=== PATIENT | female | born 1985 | race Hispanic/Latino ===

== ENCOUNTER 2018-02-27 02:14 | Emergency (ER) | payer OTHER ==
[~2018-02-27] VITALS: Ht 162.6 cm; Wt 85.3 kg
--- OUTSIDE RECORDS SUMMARY | 2018-02-27 02:17 | XMS REPORT | Clinical Summary ---
Author Author [place] [facility] Organization [place] [facility] Address Unknown Phone Unavailable Care Team Providers Care Strike Planning Applications Name Role Phone Rey Rizvi MD PCP Allergies No Known Allergies Current Medications Prescription Sig. Disp. Refills Start End Date Status Date ARMOUR THYROID 90 mg TAKE 1 TABLET ON AN EMPTY 1 06/17/19 Active tablet STOMACH DAILY SUN-SUN AND 17 2 TABLETS ON SUNDAY SOOLANTRA 1 % cream APPLY ON THE SKIN AT 2 09/01/19 Active BEDTIME FOR ROSACEA 17 doxycycline (ORACEA) 40 TAKE 1 CAPSULE EVERY DAY 5 08/31/19 Active mg capsule FOR ROSACEA 17 VERDESO 0.05 % foam APPLY TO FACIAL REDNESS 2 09/01/19 Active OR ITCHING TWICE DAILY 17 drospirenone-e.estradiol- Take 1 tablet by mouth 90 tablet 3 09/21/19 Active lm.FA (BEYAZ) daily. 17 3-0.02-0.451 mg (24) (4) tablet predniSONE (DELTASONE) 20 Take 2 tablets (40 mg 30 tablet 0 05/09/20 05/11/20 mg tablet total) by mouth daily for 17 17 2 days. epINEPHrine (EPIPEN) 0.3 Inject 0.3 mL (0.3 mg 2 Syringe 1 05/09/20 05/10/20 mg/0.3 mL auto-injector total) into the shoulder, 17 17 thigh, or buttocks as needed (allergic reaction) for up to 1 day. Active Problems No known active problems Encounters Date Type Specialty Care Team Description 02/14/2018 Telephone Obstetrics and Gynecology Olivia Elmore RN 02/13/2018 Telephone Obstetrics and Gynecology Zulay Pepe MD 09/19/2017 Orders Only Obstetrics and Gynecology Alyx Courtney MA Amenorrhea (Primary Dx) 05/21/2017 Lab Lab Disha Bae MD Other abnormal glucose Juan José Bae MD (Primary Dx); Chronic lymphocytic thyroiditis; Persistent disorder of initiating or maintaining sleep; Mixed hyperlipidemia; Apnea 05/09/2017 Emergency Emergency Medicine Clark Camacho DO Allergic reaction to food, initial encounter (Primary Dx) 03/08/2017 [employer] Wellness Naomie Wood, [employer]ITIONER II Visit for laboratory test Screening (Primary Dx) after 02/26/2017 Family History Medical History Relation Name Comments Hypertension Mother Relation Name Status Comments Mother Alive Social History Tobacco Use Types Packs/Day Years Used Date Never Smoker Smokeless Tobacco: Never Used Alcohol Use Drinks/Week oz/Week Comments Yes RARELY Sex Assigned at Date Recorded Not on file Last Filed Vital Signs Vital Sign Reading Time Taken Blood Pressure 118/77 05/09/2017 3:38 AM [employer] Pulse 89 05/09/2017 3:38 AM [employer] Temperature 37 C (98.6 F) 05/09/2017 1:32 AM [employer] Respiratory Rate 15 05/09/2017 3:38 AM [employer] Oxygen Saturation 99% 05/09/2017 3:38 AM [employer] Inhaled Oxygen - - Concentration Weight 79.7 kg (175 lb 9.6 oz) 03/08/2017 2:52 PM CDT Height 157.5 cm (5' 2") 05/09/2017 1:32 AM [employer] Body Mass Index 31.11 03/08/2017 2:52 PM CDT Plan of Treatment Date Type Specialty Care Team Description 03/04/2018 Office Visit Obstetrics and Gynecology Zulay Pepe MD [facility] [address] [place] [id number] Health Maintenance Due Date Last Done Comments CERVICAL CANCER SCREENING 2005 INFLUENZA VACCINE 12/12/2017 Procedures Procedure Name Priority Date/Time Associated Diagnosis Comments ESTIMATED GFR Routine 02/14/2018 Results for this 12:40 PM CDT procedure are in the results section. VITAMIN D 25 HYDROXY Routine 02/14/2018 Chronic lymphocytic Results for this LEVEL 12:40 PM CDT thyroiditis procedure are in the Encounter for long-term results section. (current) use of high-risk medication Vitamin D deficiency Vitamin B 12 deficiency COMPREHENSIVE METABOLIC Routine 02/14/2018 Chronic lymphocytic Results for this PANEL 12:40 PM CDT thyroiditis procedure are in the Encounter for long-term results section. (current) use of high-risk medication Vitamin D deficiency Vitamin B 12 deficiency THYROID STIMULATING Routine 02/14/2018 Chronic lymphocytic Results for this HORMONE 12:40 PM CDT thyroiditis procedure are in the Encounter for long-term results section. (current) use of high-risk medication Vitamin D deficiency Vitamin B 12 deficiency VITAMIN B12 LEVEL Routine 02/14/2018 Chronic lymphocytic Results for this 12:40 PM CDT thyroiditis procedure are in the Encounter for long-term results section. (current) use of high-risk medication Vitamin D deficiency Vitamin B 12 deficiency THYROID PEROXIDASE Routine 02/14/2018 Chronic lymphocytic Results for this ANTIBODY 12:40 PM CDT thyroiditis procedure are in the Encounter for long-term results section. (current) use of high-risk medication Vitamin D deficiency Vitamin B 12 deficiency HC COMPLETE BLD COUNT Routine 02/14/2018 Chronic lymphocytic Results for this W/AUTO DIFF 12:40 PM CDT thyroiditis procedure are in the Encounter for long-term results section. (current) use of high-risk medication Vitamin D deficiency Vitamin B 12 deficiency THYROID STIMULATING STAT 09/24/2017 Irregular menstrual cycle Results for this HORMONE 12:18 PM CDT Other retirement (current) procedure are in the drug therapy results section. Autoimmune thyroiditis ZZESTIMATED GFR Routine 09/21/2017 Results for this 12:02 PM CDT procedure are in the results section. VITAMIN D 25 HYDROXY Routine 09/21/2017 Chronic lymphocytic Results for this LEVEL 12:02 PM CDT thyroiditis procedure are in the Fatigue, unspecified type results section. Rash Vitamin D deficiency Encounter for long-term (current) use of medications THYROID PEROXIDASE Routine 09/21/2017 Chronic lymphocytic Results for this ANTIBODY 12:02 PM CDT thyroiditis procedure are in the Fatigue, unspecified type results section. Rash Vitamin D deficiency Encounter for long-term (current) use of medications COMPREHENSIVE METABOLIC Routine 09/21/2017 Chronic lymphocytic Results for this PANEL 12:02 PM CDT thyroiditis procedure are in the Fatigue, unspecified type results section. Rash Vitamin D deficiency Encounter for long-term (current) use of medications HC COMPLETE BLD COUNT Routine 09/21/2017 Chronic lymphocytic Results for this W/AUTO DIFF 12:02 PM CDT thyroiditis procedure are in the Fatigue, unspecified type results section. Rash Vitamin D deficiency Encounter for long-term (current) use of medications HCG QUANTITATIVE, SERUM Routine 09/21/2017 Amenorrhea Results for this 12:02 PM CDT procedure are in the results section. ZZESTIMATED GFR Routine 07/25/2017 Results for this 9:05 AM CDT procedure are in the results section. THYROID STIMULATING Routine 07/25/2017 Chronic lymphocytic Results for this HORMONE 9:05 AM CDT thyroiditis procedure are in the Need for prophylactic results section. chemotherapy LIPID PANEL Routine 07/25/2017 Chronic lymphocytic Results for this 9:05 AM CDT thyroiditis procedure are in the Need for prophylactic results section. chemotherapy COMPREHENSIVE METABOLIC Routine 07/25/2017 Chronic lymphocytic Results for this PANEL 9:05 AM CDT thyroiditis procedure are in the Need for prophylactic results section. chemotherapy HC COMPLETE BLD COUNT Routine 07/25/2017 Chronic lymphocytic Results for this W/AUTO DIFF 9:05 AM CDT thyroiditis procedure are in the Need for prophylactic results section. chemotherapy ZZESTIMATED GFR Routine 05/21/2017 Results for this 7:00 AM [employer] procedure are in the results section. LIPID PANEL Routine 05/21/2017 Other abnormal glucose Results for this 7:00 AM [employer] Chronic lymphocytic procedure are in the thyroiditis results section. Persistent disorder of initiating or maintaining sleep Mixed hyperlipidemia Apnea COMPREHENSIVE METABOLIC Routine 05/21/2017 Other abnormal glucose Results for this PANEL 7:00 AM [employer] Chronic lymphocytic procedure are in the thyroiditis results section. Persistent disorder of initiating or maintaining sleep Mixed hyperlipidemia Apnea THYROID STIMULATING Routine 05/21/2017 Other abnormal glucose Results for this HORMONE 7:00 AM [employer] Chronic lymphocytic procedure are in the thyroiditis results section. Persistent disorder of initiating or maintaining sleep Mixed hyperlipidemia Apnea HEMOGLOBIN A1C Routine 05/21/2017 Other abnormal glucose Results for this 7:00 AM [employer] Chronic lymphocytic procedure are in the thyroiditis results section. Persistent disorder of initiating or maintaining sleep Mixed hyperlipidemia Apnea HC COMPLETE BLD COUNT Routine 05/21/2017 Other abnormal glucose Results for this W/AUTO DIFF 7:00 AM [employer] Chronic lymphocytic procedure are in the thyroiditis results section. Persistent disorder of initiating or maintaining sleep Mixed hyperlipidemia Apnea POC COTININE Routine 03/08/2017 Visit for laboratory test Results for this 2:55 PM CDT procedure are in the results section. after 02/26/2017 Results * Estimated GFR (02/14/2018 12:40 PM) Estimated GFR >=90 mL/min/1.73 m2 [facility] DEPARTMENT OF Comment: PATHOLOGY AND [employer] GENOMIC MEDICINE rpretation G1 >=90 Normal or high G2 60-89Mildly decreased [id number] Mildly to moderately decreased [id number] Moderately to severely decreased G4 15-29Severely decreased G5 <15Kidney failure The eGFR was calculated using the Chronic Kidney Disease Epidemiology Collaboration (CKD-EPI) equation. Interpretation is based on recommendations of the National Kidney Foundation-Kidney Disease Outcomes Quality Initiative (NKF-KDOQI) published in 2014. Specimen Plasma specimen Performing Organization Address City/State/Zipcode Phone Number [facility] [place] [place] [address] [place] [place] [address] PATHOLOGY AND GENOMIC MEDICINE * Thyroperoxidase antibody (02/14/2018 12:40 PM) Only the most recent of 2 results within the time period is included. Thyroperoxidase Ab 2.8 0.0 - 9.0 IU/mL [facility] DEPARTMENT OF PATHOLOGY AND [employer] MEDIC[facility] Specimen Serum Performing Organization Address City/State/Zipcode Phone Number [facility] DEPARTMENT OF [address] [place] [address] PATHOLOGY AND [employer] MEDICINE * Vitamin D 25 hydroxy level (02/14/2018 12:40 PM) Only the most recent of 2 results within the time period is included. Vitamin D, 25-hydroxy 19.9 (L) 30.0 - 150.0 ng/mL [facility] DEPARTMENT OF Comment: PATHOLOGY AND This assay reports the sum of [facility] MEDICINE 25-hydroxy vitamin D3 and 25-hydroxy vitamin D2. Reference range: 0-17 years: Deficiency: less than 20ng/mL Optimum level: greater than or equal to 20 ng/mL. 18 years and older: Deficiency: less than 20ng/mL Insufficiency: 20-29 ng/mL Optimum Level: 30-80 ng/mL The assay reportable range is 3.4155.9 ng/mL. Levels higher than 150 ng/mL may be associated with toxicity. If toxicity is clinically suspected and the reported result is >155.9 ng/mL,contact lab for alternative methods to obtain a definitivelevel. If separate quantitation of 25-hydroxy vitamin D3 and 25-hydroxy vitamin D2 is needed, please contact lab for alternative methods. Specimen Blood Performing Organization Address City/State/Zipcode Phone Number [facility] DEPARTMENT OF [address] [place] [address] PATHOLOGY AND GENOMIC MEDICINE * CBC with platelet and differential (02/14/2018 12:40 PM) Only the most recent of 4 results within the time period is included. WBC 8.68 4.50 - 11.00 k/uL [facility] DEPARTMENT OF PATHOLOGY AND GENOMIC MEDICINE RBC 4.78 4.20 - 5.50 m/uL [facility] DEPARTMENT OF PATHOLOGY AND GENOMIC MEDICINE HGB 13.5 12.0 - 16.0 g/dL [facility] DEPARTMENT OF PATHOLOGY AND GENOMIC MEDICINE HCT 40.4 37.0 - 47.0 % [facility] DEPARTMENT OF PATHOLOGY AND GENOMIC MEDICINE MCV 84.5 82.0 - 100.0 fL [facility] DEPARTMENT OF PATHOLOGY AND GENOMIC MEDICINE MCH 28.2 27.0 - 34.0 pg [facility] DEPARTMENT OF PATHOLOGY AND GENOMIC MEDICINE MCHC 33.4 31.0 - 37.0 g/dL [facility] DEPARTMENT OF PATHOLOGY AND GENOMIC MEDICINE RDW - SD 43.1 37.0 - 55.0 fL [facility] DEPARTMENT OF PATHOLOGY AND GENOMIC MEDICINE MPV 10.0 8.8 - 13.2 fL [facility] DEPARTMENT OF PATHOLOGY AND GENOMIC MEDICINE Platelet count 248 150 - 400 k/uL [facility] DEPARTMENT OF PATHOLOGY AND GENOMIC MEDICINE Nucleated RBC 0.00 /100 WBC [facility] DEPARTMENT OF PATHOLOGY AND GENOMIC MEDICINE Neutrophils 68.5 39.0 - 69.0 % [facility] DEPARTMENT OF PATHOLOGY AND GENOMIC MEDICINE Lymphocytes 23.4 (L) 25.0 - 45.0 % [facility] DEPARTMENT OF PATHOLOGY AND GENOMIC MEDICINE Monocytes 5.1 0.0 - 10.0 % [facility] DEPARTMENT OF PATHOLOGY AND GENOMIC MEDICINE Eosinophils 2.5 0.0 - 5.0 % [facility] DEPARTMENT OF PATHOLOGY AND GENOMIC MEDICINE Basophils 0.2 0.0 - 1.0 % [facility] DEPARTMENT OF PATHOLOGY AND GENOMIC MEDICINE Specimen Blood Performing Organization Address City/State/Zipcode Phone Number [facility] [place] [place] [address] [place] [address] PATHOLOGY AND GENOMIC MEDICINE * Thyroid stimulating hormone (02/14/2018 12:40 PM) Only the most recent of 4 results within the time period is included. TSH 3.42 0.27 - 4.20 uIU/mL [facility] OF PATHOLOGY AND GENOMIC [facility] Specimen Plasma specimen Performing Organization Address City/[facility]/Zipcode Phone Number [facility] [address] [place] [address] PATHOLOGY AND [facility] * Vitamin B12 level (02/14/2018 12:40 PM) Vitamin B12 837 211 - 946 pg/mL [facility] DEPARTMENT OF Comment: PATHOLOGY AND Significant overlap exists GENOMIC MEDICINE between normal and deficiency states. However, most patients with deficiencies will have Serum B12 <200 pg/mL. Specimen Serum Performing Organization Address City/[facility] Phone Number [place] [address] [place] [address] PATHOLOGY [facility] * Comprehensive metabolic panel (02/14/2018 12:40 PM) Only the most recent of 4 results within the time period is included. Sodium 140 135 - 148 mEq/L [facility] DEPARTMENT OF PATHOLOGY AND GENOMIC MEDICINE Potassium 3.9 3.5 - 5.0 mEq/L [facility] DEPARTMENT OF PATHOLOGY AND GENOMIC MEDICINE Chloride 105 98 - 112 mEq/L [facility] DEPARTMENT OF PATHOLOGY AND GENOMIC MEDICINE CO2 26 24 - 31 mEq/L [facility] DEPARTMENT OF PATHOLOGY AND GENOMIC MEDICINE Anion gap 9@ANIO 7 - 15 mEq/L [facility] DEPARTMENT OF PATHOLOGY AND GENOMIC MEDICINE BUN 8 6 - 20 mg/dL [facility] DEPARTMENT OF PATHOLOGY AND GENOMIC MEDICINE Creatinine 0.70 0.50 - 0.90 mg/dL [facility] DEPARTMENT OF PATHOLOGY AND GENOMIC MEDICINE Glucose 76 65 - 99 mg/dL [facility] DEPARTMENT OF PATHOLOGY AND GENOMIC MEDICINE Calcium 9.7 8.3 - 10.2 mg/dL [facility] DEPARTMENT OF PATHOLOGY AND GENOMIC MEDICINE Protein 7.6 6.3 - 8.3 g/dL [facility] DEPARTMENT OF Comment: PATHOLOGY AND GENOMIC MEDICINE 4.6-7.0 g/dL 1 week 4.4-7.6 g/dL 7 months-1year 5.1-7.3 g/dL 1-2 years5.6-7 .5 g/dL >3 years6.0-8 .0 g/dL 18-150 6.3-8.3 g/dL Albumin 4.3 3.5 - 5.0 g/dL [facility] DEPARTMENT OF PATHOLOGY AND GENOMIC MEDICINE A/G ratio 1.3 0.7 - 3.8 [facility] DEPARTMENT OF PATHOLOGY AND GENOMIC MEDICINE Alkaline phosphatase 72 35 - 104 U/L [facility] DEPARTMENT OF PATHOLOGY AND GENOMIC MEDICINE AST 43 (H) 10 - 35 U/L [facility] OF PATHOLOGY AND GENOMIC MEDICINE ALT 56 (H) 5 - 50 U/L [facility] DEPARTMENT OF PATHOLOGY AND GENOMIC MEDICINE Total bilirubin 0.2 0.0 - 1.2 mg/dL [facility] DEPARTMENT OF PATHOLOGY AND GENOMIC MEDICINE Specimen Plasma specimen Performing Organization Address [facility] Phone Number [address] [place] [address] PATHOLOGY AND [employer] MEDICINE * Estimated GFR (09/21/2017 12:02 PM) Only the most recent of 3 results within the time period is included. GFR Non Af Amer >90 mL/min/1.73 m2 [facility] DEPARTMENT OF PATHOLOGY AND GENOMIC MEDICINE GFR Af Amer >90 mL/min/1.73 m2 [facility] DEPARTMENT OF Comment: PATHOLOGY AND Chronic kidney disease: <60 GENOMIC MEDICINE mL/min/1.73m2 Kidney failure: <15 mL/min/1.73m2 The estimated GFR is calculated from the IDMS-traceable Modification of Diet in Renal Disease Equation. The accuracy of the calculation is poor when the creatinine is normal. Calculated values >90 mL/min/1.73m2 are not reported. This equation has not been validated in children (<18 years), women, the elderly (>70 years), or ethnic groups other than Caucasians and Americans. Specimen Plasma specimen Performing Organization Address [facility] Phone Number [address] [place] [address] PATHOLOGY AND [employer] [facility] * hCG quantitative, serum (09/21/2017 12:02 PM) hCG quantitative, serum <0 0 - 5 mIU/mL [facility] DEPARTMENT OF Comment: PATHOLOGY AND Reference range for HCG Quant GENOMIC MEDICINE applies to males and non- females. Post Menopausal 0.0 - 8.1 mIU/mL Specimen Plasma specimen Performing Organization Address [facility] Phone Number [address] [place] [address] PATHOLOGY AND [employer] MEDICINE * Lipid panel (07/25/2017 9:05 AM) Only the most recent of 2 results within the time period is included. Cholesterol 175 <200 mg/dL [facility] DEPARTMENT OF PATHOLOGY AND GENOMIC MEDICINE Triglycerides 48 <150 mg/dL [facility] DEPARTMENT OF PATHOLOGY AND GENOMIC MEDICINE HDL cholesterol 84 >40 mg/dL [facility] DEPARTMENT OF PATHOLOGY AND GENOMIC MEDICINE LDL cholesterol 96Comment: Result obtained by <100 mg/dL [facility] DEPARTMENT OF direct LDL measurement PATHOLOGY AND [facility] MEDICINE Lipid panel SeeBelow [facility] DEPARTMENT OF interpretation Comment: PATHOLOGY AND Total Cholesterol GENOMIC MEDICINE (mg/dL) <200 Desirable 200-239Borderline -high >=240High Triglycerides (mg/dL) <150 Normal 150-199Borderline -high 200-499High >=500Very high HDL Cholesterol (mg/dL) <40Low (male) <40Low (female) LDL Cholesterol (mg/dL) <100 Optimal 100-129Near or above optimal 130-159Borderline -high 160-189High >=190Very high Risk Catergories that modify LDL goals. Risk Catergories LDL goal (mg/dL) CHD and CHD risk equivalent<100 (10-year risk >20%) Multiple (2+) risk factors <130 (10-year risk=<20%) 0-1 risk factors <160 (<10-year risk) Defining levels of lipids in metabolic syndrome Triglycerides >=150 mg/dL HDL Cholesterol Men <40 mg/dL Women <40 mg/dL Non-HDL cholesterol is a second target for therapy in persons with high triglycerides (>=200 mg/dL) Specimen Plasma specimen Performing Organization Address City/State/Zipcode Phone Number [facility] [place] [address] [address] [place] [address] PATHOLOGY AND GENOMIC MEDICINE * Hemoglobin A1c (05/21/2017 7:00 AM) Hemoglobin A1C 5.4 4.0 - 6.0 % [facility] DEPARTMENT OF Comment: PATHOLOGY AND GENOMIC MEDICINE Less than 6% - Goal of therapy for Type II Diabetes Less than 7%-Goal of therapy for Type I Diabetes Less than 8%-Accepta ble control for Type I or Type II Diabetes Greater than 8%-Unacceptabl e control; action indicated. ([id number]) Specimen Blood Performing Organization Address City/State/Zipcode Phone Number [facility] [address] [place] [address] PATHOLOGY AND GENOMIC MEDICINE * POC cotinine (03/08/2017 2:55 PM) Cotinine Negative Specimen Saliva after 02/26/2017 Insurance Payer Benefit Subscriber ID Type Phone Address Plan / Group [facility] xxxxxxxxxxxx PPO [facility] [employer] Work: [phone] [place] [id number] Home:
[2018-02-27] MEDS ORDERED: XYZAL5 MG PO (03:18)
== END 2018-02-27 03:28 | disposition home or self-care (01) ==
LOC: FSED 02:14
DX: R50.9 Fever, unspecified (principal); R05 Cough; H92.01 Otalgia, right ear; J00 Acute nasopharyngitis [common cold]; J02.9 Acute pharyngitis, unspecified
CPT/HCPCS: 87400; 99283